=== PATIENT | female | born 1970 | race Caucasian/White ===

== ENCOUNTER 2021-12-09 21:33 | Emergency (ER) | payer BC, SELFPAY ==
[2021-12-09 21:36] VITALS: BP 114/72; PULSE 65; RESP 16; TEMP 36.6; O2SAT 96; BMI 28.8
--- NOTE | 2021-12-09 21:43 | ED_ITS ---
HPI - Female Genitourinary General: Chief complaint: Back Pain/Injury Stated complaint: possible kidney stone Time Seen by Provider: 12/09/21 21:37 History of Present Illness: Ms. Flores is a 51-year-old lady without significant medical history presents to the emergency department due to concern for kidney stone. She does have a complicated history number of years ago of cholecystect wilmer with multiple complications including sphincter of Oddi dysfunction. She had pain chronically related to that however it subsequently migrated to the other side of her abdomen and she was found to have an accessory pancreas as well. Over the past few days however she has had nontraumatic onset of right flank pain without significant radiation. This was significantly noticeable with moderate to severe pain. No other specific changes in health, exacerbating, or alleviating factors identified. Onset (ago): day(s) Severity: moderate Quality of pain: sharp Consistency: constant Review of Systems General: Reports: 10 or more systems reviewed and unremarkable except in HPI and below PFSH ED PFSH: Medical History (Updated 12/10/21 @ 00:24 by Jaime Gonzalez MD) No significant past medical history Sphincter of Oddi dysfunction Surgical History (Updated 12/09/21 @ 22:18 by Jaime Gonzalez MD) History of cholecystectomy Social History (Updated 12/09/21 @ 22:18 by Jaime Gonzalez MD) Smoking and tobacco status: never smoked Alcohol intake: never Physical Exam Const: COMMON NORMALS: alert GENERAL APPEARANCE: cooperative and well developed HENMT: COMMON NORMALS: normocephalic and atraumatic HEAD & SCALP: normocephalic and atraumatic Eye: COMMON NORMALS: conjunctivae normal CONJUNCTIVA: Yes conjunctivae normal SCLERA: sclerae normal Neck/C-Spine: COMMON NORMALS: supple GENERAL: Yes trachea midline Resp: COMMON NORMALS: normal respiratory effort EFFORT & INSPECTION: Yes able to speak in complete sentences Cardio: COMMON NORMALS: regular rate and regular rhythm RATE: regular rate RHYTHM: regular rhythm GI: COMMON NORMALS: Soft to palpation PALPATION: Yes Soft to palpation and No Tenderness to palpation present (GI) PERCUSSION: Other (Mild right CVA tenderness to percussion) Extremity: GENERAL: Yes normal exam except as noted and No edema Neuro: COMMON NORMALS: moves all extremities SENSORIUM/ORIENTATION: Yes alert and No Orientation impaired Psych: COMMON NORMALS: mental status grossly normal and Normal thought process present THOUGHT PROCESS: Normal thought process present Course ED course: - Patient was seen and evaluated by me at bedside - Patient placed on cardiac monitors, IV access obtained - Initial evaluation notable for exam as above - Labs personally interpreted by me -Analgesia given - Labs notable for no leukocytosis, normal hemoglobin. No significant electrolyte derangement, renal function preserved. Urinalysis unremarkable. - Imaging notable for no acute findings identified on CT scan - Upon serial reexamination after treatment the patient was improved - Based on patient history, evaluation, and testing as interpreted the most likely cause of the patient's condition is flank pain of uncertain etiology - The results of ED evaluation were discussed with the patient including prescriptions and/or symptomatic cares (if applicable) including appropriate and responsible use, followup plan, and return precautions. The patient verbalized understanding and felt safe for discharge. - Patient discharged in satisfactory condition. Note: Click bubbles or prepopulated ritchie in note writing are used for assistance with data collection and billing and are inherently more limited than narrative and other text portions of this note. Please use narrative for additional clinical history and defer to narrative/free test for any case of contradictory information. If information appears in only free text or click bubble it should be considered present or absent as reported. Please contact note technical publications writer for clarifications of clinical information or contradictory information. MDM is a brief summary, contradictory or erroneous seeming information should be clarified and full note should be reviewed. Vital Signs: Vital signs: Vital Signs Temperature 97.9 F 12/09/21 21:36 Pulse Rate 53 L 12/09/21 23:59 Respiratory Rate 16 12/09/21 23:59 Blood Pressure 125/79 12/09/21 23:59 Pulse Oximetry 98 12/09/21 23:59 MDM - Female Medical Decision Making 51-year-old lady with history of abdominal surgeries presenting to the emergency department due to flank pain. Laboratory studies unremarkable. CT without ob vious cause of patient's symptoms. Satisfactory for outpatient management. Medical Records I reviewed the patient's medical records. Lab Data I reviewed the patient's lab results. : 12/09/21 22:15 12/09/21 22:15 Radiology Impressions Abdomen/Pelvis CT 12/09/21 23:08 IMPRESSION: Negative for acute abdominopelvic pathology. Laboratory Results WBC 6.0 10^3/uL (4.0-10.0) 12/09/21 22:15 RBC 4.59 10^6/uL (4.1-5.3) 12/09/21 22:15 Hgb 12.5 g/dL (11.5-15.3) 12/09/21 22:15 Hct 38.5 % (37.0-47.0) 12/09/21 22:15 MCV 83.9 fl (81-99) 12/09/21:15 MCH 27.2 pg (28.0-34.0) L 12/09/21 22:15 MCHC 32.5 g/dL (30.0-36.0) 12/09/21:15 RDW 15.2 % (12.1-15.1) H 12/09/21:15 Plt Count 252 10^3/cmm (130-400) 12/09/21:15 MPV 10.4 fL (7.4-10.4) 12/09/21:15 Neut % (Auto) 50.6 % 12/09/21 22:15 Lymph % (Auto) 35.5 % 12/09/21:15 [place] % (Auto) 10.1 % 12/09/21 22:15 Eos % (Auto) 2.8 % 12/09/21:15 Baso % (Auto) 0.8 % 12/09/21:15 Neut # (Auto) 3.02 10^3/uL (1.8-7.7) 12/09/21:15 Lymph # (Auto) 2.1 10^3/uL (0.8-4.8) 12/09/21 22:15 [place] # (Auto) 0.6 10^3/uL (0.2-0.9) 12/09/21 22:15 Eos # (Auto) 0.2 10^3/uL (0.0-0.8) 12/09/21:15 Baso # (Auto) 0.1 10^3/uL (0.0-0.1) 12/09/21:15 Nucleated RBC % (auto) 0 % 12/09/21:15 Nucleated RBCs # 0.0 /100WBC 12/09/21:15 Sodium 137 mmol/L (136-145) 12/09/21 22:15 Potassium 3.7 mmol/L (3.5-5.1) 12/09/21 22:15 Chloride 101 mmol/L (98-107) 12/09/21 22:15 Carbon Dioxide 28 mmol/L (22-29) 12/09/21 22:15 Anion Gap 11.7 (5-19) 12/09/21 22:15 BUN 14 mg/dL (6-20) 12/09/21 22:15 Creatinine 0.8 mg/dL (0.5-0.9) 12/09/21 22:15 GFR Calculation 75.0 mL/min (90-130) L 12/09/21 22:15 Glucose 92 mg/dL (65-115) 12/09/21:15 Calculated Osmolality 284 mOsm/kg (285-295) L 12/09/21 22:15 Calcium 8.7 mg/dL (8.5-10.5) 12/09/21 22:15 Total Bilirubin 0.2 mg/dL (0.15-1.2) 12/09/21 22:15 AST 17 U/L (0-32) 12/09/21 22:15 ALT 10 U/L (0-33) 12/09/21 22:15 Alkaline Phosphatase 71 IU/L (35-105) 12/09/21 22:15 Total Protein 7.0 g/dL (6.6-8.7) 12/09/21 22:15 Albumin 4.5 g/dL (3.5-5.2) 12/09/21 22:15 Globulin 2.5 g/dL (1.3-4.6) 12/09/21 22:15 Lipase 46 U/L (13-60) 12/09/21 22:15 Urine Color Straw (Yellow) 12/09/21 22:05 Urine Appearance Clear (CLEAR) 12/09/21 22:05 Urine pH 7 (5-7) 12/09/21 22:05 Ur Specific [place] 1.005 (1.005-1.030) 12/09/21 22:05 Urine Protein Neg (Negative) 12/09/21 22:05 Urine Glucose (UA) Norm (Normal) 12/09/21 22:05 Urine Ketones Negative (Negative) 12/09/21 22:05 Urine Blood Neg (Negative) 12/09/21 22:05 Urine Nitrate Negative (Negative) 12/09/21 22:05 Urine Bilirubin Neg (Negative) 12/09/21 22:05 Urine Urobilinogen Norm mg/dL (Negative) 12/09/21 22:05 Ur Leukocyte Esterase Negative (Negative) 12/09/21 22:05 Discharge Plan Discharge Patient Disposition: Home Clinical Impression: Acute flank pain Condition: Stable Discharge Orders: Discharge ED (Routine); Ordered 12/10/21 Ordered By: Jaime Gonzalez Referrals: Alejo Rivera DO [Primary Care Provider] - Discharge Diet: Usual diet Discharge Activity: Increase activity as tolerated Patient Instructions: Flank Pain (ED), Opioid Safety Activity Restrictions/Additional Instructions: Thank you for visiting the emergency department. You were seen and evaluated for flank pain. The exact cause of your symptoms is unclear as no cause was identified on laboratory studies or imaging. I recommend treatment with [id number] medications and rest. Please return to the emergency department for anything that you are concerned about a feel needs emergency department evaluation. Coding Level of Care Code ED Supervisor Cigar Making Machine for Wai Fwarline Exam Comprehensive
[2021-12-09 22:23] VITALS: BP 133/74; RESP 16; O2SAT 95
[2021-12-09 22:24] LABS: Basophils # 0.1 10^3/uL (0.0-0.1); Basophils % 0.8 %; Eosinophils # 0.2 10^3/uL (0.0-0.8); Eosinophils % 2.8 %; Hematocrit 38.5 % (37.0-47.0); Hemoglobin 12.5 g/dL (11.5-15.3); Lymphocytes # 2.1 10^3/uL (0.8-4.8); Lymphocytes % 35.5 %; Mean Corpuscular HGB Conc 32.5 g/dL (30.0-36.0); Mean Corpuscular Hemoglobin 27.2 pg (28.0-34.0); Mean Corpuscular Volume 83.9 fl (81-99); Mean Platelet Volume 10.4 fL (7.4-10.4); Monocytes # 0.6 10^3/uL (0.2-0.9); Monocytes % 10.1 %; Neutrophils # 3.02 10^3/uL (1.8-7.7); Neutrophils % 50.6 %; Nucleated Red Blood Cells % 0 %; Platelet Count 252 10^3/cmm (130-400); Red Blood Count 4.59 10^6/uL (4.1-5.3); Red Cell Distribution Width 15.2 % (12.1-15.1)
[2021-12-09 22:31] LABS: Add Urine Microscopic? NO; Charge for UA Resulting for Rev
[2021-12-09 22:38] LABS: Bilirubin Urine Neg (Negative); Blood Urine Neg (Negative); Glucose Urine UA Norm (Normal); Ketones Urine Negative (Negative); Leukocyte Esterase Urine Negative (Negative); Nitrate Urine Negative (Negative); Protein Urine Neg (Negative); Specific Gravity, Urine 1.005 (1.005-1.030); Urine Appearance Clear (CLEAR); Urine Color Straw (Yellow); Urobilinogen Urine Norm (Negative); pH Urine 7 (5-7)
[2021-12-09 22:43] VITALS: RESP 16
[2021-12-09] MEDS: ketorolac 30 mg/mL INJ 15 MG IVP (22:43)
[2021-12-09] MEDS: morphine 4 mg/mL SDV 1 mL IVP (22:43)
[2021-12-09 22:48] LABS: Alanine Aminotransferase 10 U/L (0-33); Albumin Level 4.5 g/dL (3.5-5.2); Alkaline Phosphatase 71 IU/L (35-105); Anion Gap 11.7 (5-19); Aspartate Amino Transferase 17 U/L (0-32); Blood Urea Nitrogen 14 mg/dL (6-20); Calcium 8.7 mg/dL (8.5-10.5); Carbon Dioxide 28 mmol/L (22-29); Chloride 101 mmol/L (98-107); Globulin 2.5 g/dL (1.3-4.6); Glucose 92 mg/dL (65-115); Lipase 46 U/L (13-60); Osmolality Calculated 284 mOsm/kg (285-295); Potassium 3.7 mmol/L (3.5-5.1); Sodium 137 mmol/L (136-145); Total Bilirubin 0.2 mg/dL (0.15-1.2)
[2021-12-09 22:51] VITALS: BP 136/69; PULSE 55; RESP 16; O2SAT 98
--- NOTE | 2021-12-09 23:08 | CTR_ITS ---
PROCEDURE INFORMATION: Exam: CT Abdomen And Pelvis With Contrast Exam date and time: 12/09/2021 11:20 PM Age: 51 years old Clinical indication: Abdominal pain; Localized; Right; Prior surgery; Surgery type: Gb; Patient HX: C/O RT flank and back pain. ; Additional info: R flank/back pain TECHNIQUE: Imaging protocol: Computed tomography of the abdomen and pelvis with contrast. Radiation optimization: All CT scans at this facility use at least one of these dose optimization techniques: automated exposure control; mA and/or kV adjustment per patient size (includes targeted exams where dose is matched to clinical indication); or iterative reconstruction. Contrast material: OMNI 300; Contrast volume: 75 ml; Contrast route: INTRAVENOUS (IV); COMPARISON: No relevant prior studies available. RADIATION DOSE METRICS: Total DLP (mGy-cm): 1414.51 FINDINGS: Liver: Several simple liver cysts. No liver enlargement. Gallbladder and bile ducts: Cholecystectomy. Nonspecific mild dilation of common bile duct. Pancreas: Normal. No ductal dilation. Spleen: Normal. No splenomegaly. Adrenal glands: Normal. No mass. Kidneys and ureters: Normal. No hydronephrosis. Stomach and bowel: Unremarkable. No obstruction. No mucosal thickening. Appendix: No evidence of appendicitis. Intraperitoneal space: Unremarkable. No free air. No significant fluid collection. Vasculature: Unremarkable. No abdominal aortic aneurysm. Lymph nodes: Unremarkable. No enlarged lymph nodes. Urinary bladder: Unremarkable as visualized. Reproductive: Small cyst of the left ovary measures 3 cm x 3 cm. Normal right ovary. Unremarkable uterus. Bones/joints: Unremarkable. No acute fracture. Soft tissues: Unremarkable. CT/CT abdomen pelvis w con* [id number] IMPRESSION: Negative for acute abdominopelvic pathology.
[2021-12-09] MEDS: iohexol 300 mg/mL 100 mL Btl IV (23:19)
[2021-12-09 23:59] VITALS: BP 125/79; PULSE 53; RESP 16; O2SAT 98
== END 2021-12-10 00:32 | disposition home or self-care (01) ==
PROVIDERS: Emergency Provider Emergency Medicine; PCP Family Medicine
DX: R10.9 Unspecified abdominal pain (principal)
CPT/HCPCS: 74177; 80053; 81003; 83690; 85025; 96374; 96375; 99284; J1885; J2270; Q9967

== ENCOUNTER 2022-11-24 18:57 | Emergency (ER) | payer BC, SELFPAY ==
--- NOTE | 2022-11-24 18:59 | XRR_ITS ---
PROCEDURE INFORMATION: Exam: XR Chest Exam date and time: 11/24/2022 7:15 PM Age: 52 years old Clinical indication: Pain; Right-sided; Additional info: Cp TECHNIQUE: Imaging protocol: Radiologic exam of the chest. Views: 1 view. COMPARISON: CT abdomen pelvis w con* [id number] 12/09/2021 11:20 PM FINDINGS: Lungs: Infiltrate or atelectasis medial right lung base. Pleural spaces: Unremarkable. No pleural effusion. No pneumothorax. Heart/Mediastinum: Unremarkable. No cardiomegaly. Bones/joints: Unremarkable. XR/XR chest 1V portable [id number] IMPRESSION: 1. No acute findings. 2. Infiltrate or atelectasis medial right lung base. Correlate for possible pneumonia.
[2022-11-24 19:00] VITALS: BP 133/87; PULSE 62; RESP 15; TEMP 36.4; O2SAT 99; BMI 29.5
--- NOTE | 2022-11-24 19:06 | ECG_ITS ---
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 Measurements Intervals [place] Rate: 63 P: 123 [place]: 185 QRS: 1 QRSD: 75 T: 115 QT: 396 QTc: 407 Interpretive Statements SINUS RHYTHM POSSIBLE LEFT ATRIAL ENLARGEMENT [-0.1mV P-WAVE IN V1/V2] LOW QRS VOLTAGE [QRS DEFLECTION < 0.5/1.0 mV IN LIMB/CHEST LEADS] POSSIBLE RIGHT VENTRICULAR CONDUCTION DELAY [RSR (QR) IN V1/V2] ANTEROSEPTAL MYOCARDIAL INFARCTION , OF INDETERMINATE AGE [40+ ms Q WAVE IN V1-V4] No previous ECG available for comparison Electronically Signed On 11-25-2022 21:09:44 CDT by Keeley Avila M.D. [id number]
[2022-11-24 19:33] LABS: Basophils # 0.1 10^3/uL (0.0-0.1); Basophils % 0.9 %; Eosinophils # 0.2 10^3/uL (0.0-0.8); Eosinophils % 2.4 %; Hematocrit 40.7 % (37.0-47.0); Hemoglobin 12.9 g/dL (11.5-15.3); Lymphocytes # 1.9 10^3/uL (0.8-4.8); Lymphocytes % 27.4 %; Mean Corpuscular HGB Conc 31.7 g/dL (30.0-36.0); Mean Corpuscular Hemoglobin 27.6 pg (28.0-34.0); Mean Corpuscular Volume 87.2 fl (81-99); Mean Platelet Volume 10.3 fL (7.4-10.4); Monocytes # 0.6 10^3/uL (0.2-0.9); Monocytes % 9.3 %; Neutrophils # 4.02 10^3/uL (1.8-7.7); Neutrophils % 59.7 %; Nucleated Red Blood Cells % 0 %; Platelet Count 267 10^3/cmm (130-400); Red Blood Count 4.67 10^6/uL (4.1-5.3); Red Cell Distribution Width 14.4 % (12.1-15.1); White Blood Count 6.7 10^3/uL (4.0-10.0)
[2022-11-24 19:52] LABS: Alanine Aminotransferase 15 U/L (0-33); Albumin Level 4.7 g/dL (3.5-5.2); Alkaline Phosphatase 75 U/L (35-105); Anion Gap 16.1 (5-19); Aspartate Amino Transferase 20 U/L (0-32); Blood Urea Nitrogen 15 mg/dL (6-20); Calcium 9.2 mg/dL (8.5-10.5); Carbon Dioxide 28 mmol/L (22-29); Chloride 99 mmol/L (98-107); Globulin 2.6 g/dL (1.3-4.6); Glomerular Filtration Rate 74.7 mL/min (90-130); Glucose 86 mg/dL (65-115); Osmolality Calculated 288 mOsm/kg (285-295); Potassium 4.1 mmol/L (3.5-5.1); Sodium 139 mmol/L (136-145); Total Bilirubin 0.3 mg/dL (0.15-1.2); Total Protein 7.3 g/dL (6.6-8.7)
[2022-11-24 19:56] LABS: INR 0.96 (0.8-1.2); Troponin(5th) Baseline 7 ng/L (0-10)
[2022-11-24 21:00] VITALS: BP 110/73; PULSE 48; RESP 17; O2SAT 100
--- NOTE | 2022-11-24 21:00 | ECG_ITS ---
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 Measurements Intervals [place] Rate: 50 P: 66 [place]: 216 QRS: 58 QRSD: 77 T: 76 QT: 447 QTc: 408 Interpretive Statements SINUS BRADYCARDIA WITH FIRST DEGREE AV BLOCK INDETERMINATE AXIS LOW QRS VOLTAGE IN PRECORDIAL LEADS [QRS DEFLECTION < 1.0 mV IN CHEST LEADS] POSSIBLE RIGHT VENTRICULAR CONDUCTION DELAY [RSR (QR) IN V1/V2] SEPTAL MYOCARDIAL INFARCTION , OF INDETERMINATE AGE [40+ ms Q WAVE IN V1/V2] Compared to ECG 11/24/2022 19:06:09 First degree AV block now present Indeterminate axis now present Sinus rhythm no longer present Myocardial infarct finding still present Electronically Signed On 11-25-2022 21:26:01 CDT by Keeley Avila M.D. [id number]
--- NOTE | 2022-11-24 21:20 | ED_ITS ---
HPI - Chest Pain General: Chief Complaint: Chest Pain Stated Complaint: Chest Piains\Under Arm Pain Time Seen by Provider: 11/24/22 21:05 History of Present Illness: Patient presents to the ER today complaining of chest pain off and on for several months. Patient says she just been working herself to exhaustion and her children have her next stressful frenzy this is all made it worse. Patient says this has happened before in the past in which she was on Xanax which helped relieve the symptoms. Patient has been off Xanax for 5 to 6 years. MD complaint: chest pain and chest heaviness Onset (ago): month(s) Timing of current episode: episodic Prior episodes: Yes Onset: during exertion and other (And stress) Pain location: substernal Pain radiation: left shoulder and left scapula Severity: moderate Relieving factors: rest Exacerbating factors: exertion and stress Associated symptoms: Reports no associated symptoms; Deny abdominal pain, dyspnea, fever(s), nausea, palpitations or vomiting Treatment prior to arrival: none Review of Systems General: Reports: 10 or more systems reviewed and unremarkable except in HPI and below Const: Denies: fever(s) or chills Eyes: Denies: change in vision or photophobia ENMT: Denies: throat pain or odynophagia Card: Reports: chest pain; Denies: palpitations or irregular heart rhythm Resp: Denies: dyspnea, productive cough or non-productive cough GI: Denies: abdominal pain, nausea, vomiting or diarrhea : Denies: flank pain or difficulty voiding [facility] ED PFSH: Medical History No significant past medical history Sphincter of Oddi dysfunction Surgical History History of cholecystectomy Social History Smoking and tobacco status: never smoked Alcohol intake: never Physical Exam Const: COMMON NORMALS: no acute distress, average body habitus, patient oriented x3, no limitations, healthy appearing, alert and well nourished HENMT: COMMON NORMALS: normocephalic, atraumatic, hearing grossly normal bilaterally, external ears normal, Normal external nose present and moist oral mucous membranes HEAD & SCALP: normocephalic and atraumatic NOSE: Normal external nose present EXTERNAL EAR: Yes external ears normal Eye: COMMON NORMALS: Equal, round and reactive pupils present, EOMs intact bilaterally, conjunctivae normal and no scleral icterus CONJUNCTIVA: Yes conjunctivae normal PUPIL: Yes Equal, round and reactive pupils present Neck/C-Spine: COMMON NORMALS: full ROM, no lymphadenopathy, supple, no meningeal signs, no JVD and Thyroid normal THYROID: Thyroid normal Lymph: LYMPHATIC: no lymphadenopathy noted Chest: COMMONS NORMALS: normal inspection of the chest and normal palpation of entire chest wall Resp: COMMON NORMALS: normal respiratory effort, No retractions, No use of accessory muscles and clear to auscultation bilaterally AUSCULTATION: clear to auscultation bilaterally Cardio: COMMON NORMALS: no JVD, regular rate, regular rhythm, S1 normal heart sound present and S2 normal heart sound present RATE: regular rate RHYTHM: regular rhythm HEART SOUNDS: S1 normal heart sound present and S2 normal heart sound present GI: COMMON NORMALS: Normal to inspection, nondistended, normoactive bowel s ounds present, Soft to palpation, non-tender, No hepatosplenomegaly present and no masses PALPATION: Yes Soft to palpation and Yes No hepatosplenomegaly present : COMMON NORMALS: Yes no CVA tenderness BLADDER/KIDNEY EXAM: Yes no CVA tenderness Back/Pelvis: COMMON NORMALS: no CVA tenderness Neuro: COMMON NORMALS: patient oriented x3 SENSORIUM/ORIENTATION: Yes alert MENINGEAL SIGNS: Yes no meningeal signs Course Vital Signs: Vital signs: Vital Signs Temperature 97.5 F L 11/24/22 19:00 Pulse Rate 49 L 11/24/22 21:30 Respiratory Rate 12 11/24/22 21:30 Blood Pressure 108/67 11/24/22 21:30 Pulse Oximetry 100 11/24/22 21:30 Oxygen Delivery Me thod Room Air 11/24/22 21:30 MDM - Chest Pain Medical Decision Making Patient presents to the ER with chest pain for many months. Patient says she just works herself to . Patient says when she is not working or not under a lot of stress her pain goes away. Patient received a full cardiac work-up which was essentially negative patient [facility] to take as needed. Patient should follow-up with her primary care physician within 1 week. Differential Diagnosis Unlikely acute massive pulmonary embolism, acute respiratory failure, acute myocardial infarction, cardiac arrest or sudden cardiac Medical Records I reviewed the patient's medical records. Lab Data I reviewed the patient's lab results. 11/24/22 19:10 11/24/22 19:10 Radiology Impressions Chest X-Ray 11/24/22 18:59 IMPRESSION: 1. No acute findings. 2. Infiltrate or atelectasis medial right lung base. Correlate for possible pneumonia. Laboratory Results WBC 6.7 10^3/uL (4.0-10.0) 11/24/22 19:10 RBC 4.67 10^6/uL (4.1-5.3) 11/24/22 19:10 Hgb 12.9 g/dL (11.5-15.3) 11/24/22 19:10 Hct 40.7 % (37.0-47.0) 11/24/22 19:10 MCV 87.2 fl (81-99) 11/24/22 19:10 MCH 27.6 pg (28.0-34.0) L 11/24/22 19:10 MCHC 31.7 g/dL (30.0-36.0) 11/24/22 19:10 RDW 14.4 % (12.1-15.1) 11/24/22 19:10 Plt Count 267 10^3/cmm (130-400) 11/24/22 19:10 MPV 10.3 fL (7.4-10.4) 11/24/22 19:10 Neut % (Auto) 59.7 % 11/24/22 19:10 Lymph % (Auto) 27.4 % 11/24/22 19:10 [place] % (Auto) 9.3 % 11/24/22 19:10 Eos % (Auto) 2.4 % 11/24/22 19:10 Baso % (Auto) 0.9 % 11/24/22 19:10 Neut # (Auto) 4.02 10^3/uL (1.8-7.7) 11/24/22 19:10 Lymph # (Auto) 1.9 10^3/uL (0.8-4.8) 11/24/22 19:10 [place] # (Auto) 0.6 10^3/uL (0.2-0.9) 11/24/22 19:10 Eos # (Auto) 0.2 10^3/uL (0.0-0.8) 11/24/22 19:10 Baso # (Auto) 0.1 10^3/uL (0.0-0.1) 11/24/22 19:10 Nucleated RBC % (auto) 0 % 11/24/22 19:10 Nucleated RBCs # 0.0 /100WBC 11/24/22 19:10 PT 13.10 SECONDS (12.1-14.9) 11/24/22 19:10 INR 0.96 (0.8-1.2) 11/24/22 19:10 Sodium 139 mmol/L (136-145) 11/24/22 19:10 Potassium 4.1 mmol/L (3.5-5.1) 11/24/22 19:10 Chloride 99 mmol/L (98-107) 11/24/22 19:10 Carbon Dioxide 28 mmol/L (22-29) 11/24/22 19:10 Anion Gap 16.1 (5-19) 11/24/22 19:10 BUN 15 mg/dL (6-20) 11/24/22 19:10 Creatinine 0.8 mg/dL (0.5-0.9) 11/24/22 19:10 GFR Calculation 74.7 mL/min (90-130) L 11/24/22 19:10 Glucose 86 mg/dL (65-115) 11/24/22 19:10 Calculated Osmolality 288 mOsm/kg (285-295) 11/24/22 19:10 Calcium 9.2 mg/dL (8.5-10.5) 11/24/22 19:10 Total Bilirubin 0.3 mg/dL (0.15-1.2) 11/24/22 19:10 AST 20 U/L (0-32) 11/24/22 19:10 ALT 15 U/L (0-33) 11/24/22 19:10 Alkaline Phosphatase 75 U/L (35-105) 11/24/22 19:10 Troponin T Baseline 7 ng/L (0-10) 11/24/22 19:10 Troponin T 120 Minute 6.85 ng/L (0-10) 11/24/22 20:53 Delta Troponin T -0.15 ABS# (0-10) L 11/24/22 20:53 Total Protein 7.3 g/dL (6.6-8.7) 11/24/22 19:10 Albumin 4.7 g/dL (3.5-5.2) 11/24/22 19:10 Globulin 2.6 g/dL (1.3-4.6) 11/24/22 19:10 Discharge Plan Discharge Patient Disposition: Home Clinical Impression: Atypical chest pain, Anxiety Condition: Stable Prescriptions: New buspirone 5 mg tablet 5 mg PO TID PRN (Reason: anxiety ) Qty: 30 0RF Discharge Orders: Discharge ED (Routine); Ordered 11/24/22 Ordered By: Zak Yadav Referrals: Alejo Rivera DO [Primary Care Provider] - 1 week Patient Instructions: Chest Pain (ED), Anxiety (ED) Coding Level of Care Code ED Material Preparation Worker for Wai Shelton
[2022-11-24 21:23] LABS: Troponin 5 2HR 6.85 ng/L (0-10)
[2022-11-24 21:30] VITALS: BP 108/67; PULSE 49; RESP 12; O2SAT 100
[2022-11-24 21:32] LABS: Troponin 5 2HR Delta -0.15 ABS# (0-10)
[2022-11-24 22:00] VITALS: BP 108/67; RESP 16; O2SAT 98
== END 2022-11-24 22:01 | disposition home or self-care (01) ==
PROVIDERS: Emergency Medicine; Emergency Provider Emergency Medicine; PCP Family Medicine
DX: R07.89 Other chest pain (principal); F41.9 Anxiety disorder, unspecified
CPT/HCPCS: 36415; 71045; 80053; 84484; 85025; 85610; 93005; 99285

== ENCOUNTER 2024-10-19 14:04 | Outpatient (CLI) | payer OTHER, SELFPAY ==
--- NOTE | 2024-10-19 | MM_ITS ---
WS: [id number] BILATERAL 3D TOMOSYNTHESIS DIGITAL SCREENING MAMMOGRAPHY WITH CAD CLINICAL INFORMATION: ANNUAL SCREENING HISTORY: Screening mammogram. No current complaints. COMPARISON: Baseline TECHNIQUE: Bilateral CC and MLO views. FINDINGS: Scattered fibroglandular densities bilaterally. No suspicious focal mass, asymmetry, calcifications, or architectural distortion. No evidence of malignancy. MM/MM scr BI tomosynthesis [id number] IMPRESSION: DENSITY: There are scattered areas of fibroglandular density. BI-RADS: 1 - Negative. FOLLOW UP: 1 Year Follow-up Recommend return to annual screening mammography.
--- NOTE | 2024-10-19 14:07 | USR_ITS ---
PROCEDURE INFORMATION: Exam: US Pelvis Transabdominal, Complete, and US Pelvis Transvaginal, Non-obstetric Exam date and time: 10/19/2024 2:39 PM Age: 54 years old Clinical indication: Menstruation abnormalities; Postmenopausal bleeding; Additional info: Post menopausal bleeding TECHNIQUE: Imaging protocol: Real-time complete transabdominal and transvaginal pelvic ultrasound (non-obstetric) with image documentation. Transvaginal imaging was used for better evaluation of the endometrium, adnexa, and/or cervix. COMPARISON: CT abdomen pelvis w con* [id number] 12/09/2021 11:20 PM FINDINGS: Uterus: The uterus is anteverted. Uterine contours are normal. The cervix is normal. Endometrial stripe thickness is 7 mm. There is no fluid in the endometrial canal. Echotexture of the endometrium is heterogeneous with multifocal echogenic and hypoechoic foci. Transitional myometrium is mildly ill-defined. There are scattered echogenic foci in the myometrium with mild posterior acoustic shadowing. Right ovary/adnexa: The right ovary is not visible. Left ovary/adnexa: The left ovary measures 4.4 x 4.7 x 3.5 cm for a volume of 37 cc. There is an irregular 3.3 cm cyst in the left ovary. There is a 5 mm echogenic focus corresponding to a calcification visible on the prior CT. Intraperitoneal space: No pelvic free fluid. Urinary bladder: The urinary bladder is unremarkable. US/US pelvic complete* [id number] IMPRESSION: 1. Abnormal thickened endometrium for a postmenopausal patient. Possible endometrial hypertrophy. Endometrial polyp and neoplasm are not excluded. Consider further evaluation with MRI, endometrial sampling or hysterosonography. 2. Partially obscured transitional myometrium and echogenic foci in the myometrium suggest adenomyosis. 3. Enlarged left ovary with 5 mm internal calcification, mildly increased in size since 12/09/2021 when it measured 3.2 x 3.0 cm. Probable dermoid. Consider follow-up MRI without and with IV contrast for more complete characterization.
== END 2024-10-19 14:05 | disposition home or self-care (01) ==
LOC: RAD 14:04
PROVIDERS: PCP Family Medicine; Visit Provider Nurse Practitioner Family
DX: Z12.31 Encounter for screening mammogram for malignant neoplasm of breast (principal); N95.0 Postmenopausal bleeding; R92.323 Mammographic fibroglandular density, bilateral breasts; R93.89 Abnormal findings on diagnostic imaging of other specified body structures; N83.8 Other noninflammatory disorders of ovary, fallopian tube and broad ligament
CPT/HCPCS: 76856; 77063; 77067